=== PATIENT | female | born 1990 | race Caucasian/White ===

== ENCOUNTER 2016-10-26 13:44 | Emergency (ER) | payer MEDICAID ==
[~2016-10-26] VITALS: Ht 154.9 cm; Wt 59.0 kg
[2016-10-26 13:50] VITALS: BP_SYST 114
[2016-10-26 14:20] VITALS: BP_SYST 120
== END 2016-10-26 14:20 ==
LOC: SED 13:44
DX: R51 Headache (principal)
CPT/HCPCS: 99283